=== PATIENT | male | born 1965 | race African-American/Black ===

== ENCOUNTER 2024-02-16 14:20 | Inpatient (IN) | payer SELFPAY ==
[~2024-02-16] VITALS: Ht 365.8 cm; Wt 85.3 kg
[2024-02-16 14:20] VITALS: RESP 22
[2024-02-16] MEDS ORDERED: ALBUTEROL (0.083%) 2.5MG/3ML NEB ONE (14:26)
[2024-02-16] MEDS ORDERED: IPRATROPIUM BROMIDE (0.02%) 0.5MG/2.5ML NEB ONE (14:26)
[2024-02-16] MEDS: MAGNESIUM 2 G PREMIX 50 ML IV ONE (14:48)
[2024-02-16] MEDS: SODIUM CHLORIDE 0.9% 500 ML IV ONE ×2 (14:48→19:26)
[2024-02-16 14:49] LABS: BASOPHILS % 0.7 % (0.0-2.0); EOSINOPHILS % 5.9 % (0.0-5.0); HEMATOCRIT. 45.9 % (42.0-52.0); HEMOGLOBIN. 15.6 g/dL (14.0-18.0); LYMPHOCYTES % 30.6 % (20.0-50.0); MEAN CORPUSCULAR HEMOGLOBIN 32.8 pg (28.0-32.0); MEAN CORPUSCULAR HGB CONC 34.1 g/dL (31.0-37.0); MEAN CORPUSCULAR VOLUME 96.1 fL (80.0-94.0); MEAN PLATELET VOLUME 8.4 fl (7.4-10.4); NEUTROPHILS % 49.8 % (40.0-76.0); PLATELET 226 x1000/uL (130-400); RED BLOOD CELL COUNT 4.77 mill/uL (4.7-6.1); RED CELL DISTRIBUTION WIDTH 13.3 % (11.6-14.6); WHITE BLOOD COUNT 8.1 x1000/uL (4.5-11.0)
[2024-02-16 14:54] LABS: CHLORIDE 107 mEq/L (98-107); SODIUM 139 mEq/L (136-145)
[2024-02-16 14:55] LABS: CARBON DIOXIDE 28 mEq/L (21-32)
[2024-02-16 15:00] LABS: CREATININE 1.4 mg/dL (0.6-1.3); GLUCOSE 111 mg/dL (70-105)
[2024-02-16 15:01] LABS: UREA NITROGEN BLOOD 9 mg/dL (9-23)
[2024-02-16 15:02] LABS: ALANINE AMINOTRANSFERASE 23 IU/L (10-49); ALBUMIN 4.1 g/dL (3.2-4.8); ASPARTATE AMINOTRANSFERASE 29 IU/L (<34)
[2024-02-16 15:03] LABS: BILIRUBIN TOTAL 0.3 mg/dL (0.1-1.0); PROTEIN TOTAL 7.3 g/dL (6.0-8.3)
[2024-02-16 15:31] LABS: TROPONIN I HIGH SENSITIVITY < 4 ng/L (3.0-53)
[2024-02-16 15:40] LABS: BG BASE EXCESS -1.3 mmol/L (-2.0-2.0); BG CARBOXYHEMOGLOBIN 0.4 % (0.5-1.5); BG DEOXYHEMOGLOBIN 0.1 % (0.0-5.0); BG FRACTION INSPIRED OXYGEN 100; BG HCO3 ACT 25.8 mmol/L (22.0-26.0); BG METHEMOGLOBIN 0.4 % (0.0-1.5); BG OXYGEN SATURATION 99.9 % (92.0-98.5); BG OXYHEMOGLOBIN 99.1 % (94.0-97.0); BG PCO2 52.1 mmHg (35.0-45.0); BG PH 7.312 (7.350-7.450); BG PO2 543.8 mmHg (75.0-100.0); BG SAMPLE SITE RIGHT RADIAL; BG TOTAL HEMOGLOBIN 15.4 g/dL (12.0-18.0); BG VENT MODE MASK - BIPAP
[2024-02-16] MEDS ORDERED: NA PHOS,M-B/NA PHOS,DI-BA ENEMA 118ML PR PRN (16:00)
[2024-02-16] MEDS ORDERED: NITROGLYCERIN 0.4MG TABLET SL SL PRN (16:00)
[2024-02-16] MEDS ORDERED: ONDANSETRON HCL 4MG/2ML INJ IV PRN (16:00)
[2024-02-16] MEDS ORDERED: ZOLPIDEM TARTRATE 5MG TABLET PO PRN (16:00)
[2024-02-16] MEDS ORDERED: IPRATROPIUM/ALBUTEROL 0.5-3(2.5)MG/3ML NEB NEB PRN (16:00)
[2024-02-16] MEDS ORDERED: CLONIDINE 0.1MG TABLET PO PRN (16:00)
[2024-02-16] MEDS ORDERED: MAGNESIUM/ALUMINUM HYDROXIDE/SIMETHICONE 30ML UDC PO PRN (16:00)
[2024-02-16] MEDS ORDERED: ACETAMINOPHEN 325MG TABLET PO PRN ×2 (16:00)
[2024-02-16] MEDS ORDERED: DOCUSATE SODIUM 100MG CAPSULE PO PRN (16:00)
[2024-02-16] MEDS ORDERED: KETOROLAC 15MG/ML VIAL IV PRN (16:00)
[2024-02-16 16:47] LABS: IRON 31 ug/dL (65-175)
[2024-02-16 16:50] LABS: TOTAL IRON BINDING CAPACITY 266 ug/dl (250-425)
[2024-02-16 16:58] LABS: TRIGLYCERIDE 78 mg/dL (0-150)
[2024-02-16 16:59] LABS: ETHANOL BLOOD < 10 mg/dL (<10); LDL CHOLESTEROL 92 mg/dL (5-100)
[2024-02-16 17:00] LABS: CHOLESTEROL 139 mg/dL (<200); HDL CHOLESTEROL 44 mg/dL (>55)
[2024-02-16 17:03] LABS: FOLIC ACID (FOLATE) SERUM 12.53 ng/mL (>5.38); VITAMIN B12 SERUM 706 pg/mL (211-911)
[2024-02-16 17:04] LABS: THYROID STIMULATING HORMONE 1.29 uIU/mL (0.55-4.78)
[2024-02-16] MEDS ORDERED: DILTIAZEM HCL 60MG TABLET PO SCH (18:00)
[2024-02-16 18:50] LABS: BG BASE EXCESS 0.3 mmol/L (-2.0-2.0); BG CARBOXYHEMOGLOBIN 0.5 % (0.5-1.5); BG DEOXYHEMOGLOBIN 5.1 % (0.0-5.0); BG FRACTION INSPIRED OXYGEN 28; BG HCO3 ACT 25.9 mmol/L (22.0-26.0); BG METHEMOGLOBIN 0.3 % (0.0-1.5); BG OXYGEN SATURATION 94.9 % (92.0-98.5); BG OXYHEMOGLOBIN 94.1 % (94.0-97.0); BG PCO2 45.3 mmHg (35.0-45.0); BG PH 7.375 (7.350-7.450); BG PO2 73.1 mmHg (75.0-100.0); BG SAMPLE SITE RIGHT RADIAL; BG VENT MODE NASAL CANNULA
[2024-02-16] MEDS: DILTIAZEM HCL 30MG TABLET PO SCH (19:25)
[2024-02-16] MEDS: ENOXAPARIN 40MG/0.4ML SYR SUBCUT SCH (19:26)
[2024-02-16] MEDS: AZITHROMYCIN 500MG/250ML 250 ML IV SCH (19:26)
[2024-02-16] MEDS: IPRATROPIUM/ALBUTEROL 0.5-3(2.5)MG/3ML NEB HHN ONE (20:02)
[2024-02-16 20:03] VITALS: PULSE 115; RESP 18; O2SAT 98
[2024-02-16] MEDS ORDERED: SODIUM CHLORIDE 0.9% 500 ML IV ONE (21:45)
[2024-02-16] MEDS: LABETALOL 5MG/ML SYR 20 MG/4 ML SYRINGE IV NR (22:04)
[2024-02-16 22:15] VITALS: PULSE 137; RESP 22; O2SAT 99
[2024-02-16] MEDS: IPRATROPIUM/ALBUTEROL 0.5-3(2.5)MG/3ML NEB HHN SCH (22:15)
[2024-02-16] MEDS: METHYLPREDNISOLONE SOD SUCC 125MG/2ML (ACT-O-VIAL) IV SCH (22:29)
[2024-02-16 22:40] VITALS: RESP 23
[2024-02-16 23:10] LABS: BG BASE EXCESS -6.4 mmol/L (-2.0-2.0); BG CARBOXYHEMOGLOBIN 0.2 % (0.5-1.5); BG DEOXYHEMOGLOBIN 0.1 % (0.0-5.0); BG FRACTION INSPIRED OXYGEN 100; BG HCO3 ACT 22.1 mmol/L (22.0-26.0); BG METHEMOGLOBIN 0.4 % (0.0-1.5); BG OXYGEN SATURATION 99.9 % (92.0-98.5); BG OXYHEMOGLOBIN 99.3 % (94.0-97.0); BG PH 7.215 (7.350-7.450); BG PO2 577.7 mmHg (75.0-100.0); BG SAMPLE SITE RIGHT RADIAL; BG TOTAL HEMOGLOBIN 15.4 g/dL (12.0-18.0); BG VENT MODE MASK - BIPAP
[2024-02-16] MEDS: GUAIFENESIN 600MG ER TABLET PO SCH (23:21)
[2024-02-16] MEDS: FAMOTIDINE 20MG TABLET PO SCH (23:22)
[2024-02-16 23:27] LABS: CREATINE KINASE 521 IU/L (46-171); CREATINE KINASE MB FRACTION 5.3 ng/mL (0.5-3.6)
[2024-02-16 23:36] LABS: TROPONIN I HIGH SENSITIVITY < 4 ng/L (3.0-53)
[2024-02-17] VITALS (13 sets, daily range): BP systolic 106–142; BP diastolic 59–99; PULSE 100–146; RESP 16–25; TEMP 97.4–98.6; O2SAT 98–99
[2024-02-17] MEDS: SODIUM CHLORIDE 0.9% 1,000 ML IV SCH (01:15)
[2024-02-17 06:44] LABS: HEMATOCRIT. 43.6 % (42.0-52.0); HEMOGLOBIN. 14.8 g/dL (14.0-18.0); MEAN CORPUSCULAR HEMOGLOBIN 32.8 pg (28.0-32.0); MEAN CORPUSCULAR HGB CONC 33.9 g/dL (31.0-37.0); MEAN CORPUSCULAR VOLUME 96.8 fL (80.0-94.0); MEAN PLATELET VOLUME 9.1 fl (7.4-10.4); PLATELET 199 x1000/uL (130-400); RED BLOOD CELL COUNT 4.51 mill/uL (4.7-6.1); RED CELL DISTRIBUTION WIDTH 13.1 % (11.6-14.6); WHITE BLOOD COUNT 6.2 x1000/uL (4.5-11.0)
[2024-02-17 06:53] LABS: CHLORIDE 106 mEq/L (98-107); POTASSIUM 5.1 mEq/L (3.5-5.1); SODIUM 139 mEq/L (136-145)
[2024-02-17 06:56] LABS: CALCIUM 9.1 mg/dL (8.7-10.4); CARBON DIOXIDE 26 mEq/L (21-32)
[2024-02-17 07:00] LABS: CREATINE KINASE MB FRACTION 4.7 ng/mL (0.5-3.6)
[2024-02-17 07:01] LABS: CREATININE 1.3 mg/dL (0.6-1.3); GLUCOSE 124 mg/dL (70-105); UREA NITROGEN BLOOD 8 mg/dL (9-23)
[2024-02-17 07:02] LABS: ALANINE AMINOTRANSFERASE 30 IU/L (10-49); DIFFERENTIAL COMMENT 1
[2024-02-17 07:03] LABS: ASPARTATE AMINOTRANSFERASE 32 IU/L (<34); PHOSPHORUS 2.8 mg/dL (2.5-4.9)
[2024-02-17 07:04] LABS: BILIRUBIN TOTAL 0.5 mg/dL (0.1-1.0); CREATINE KINASE 459 IU/L (46-171)
[2024-02-17 07:06] LABS: TROPONIN I HIGH SENSITIVITY < 4 ng/L (3.0-53)
[2024-02-17] MEDS: ASPIRIN 325MG EC TABLET PO SCH (09:33)
[2024-02-17 10:31] LABS: BG BASE EXCESS -1.1 mmol/L (-2.0-2.0); BG CARBOXYHEMOGLOBIN 0.3 % (0.5-1.5); BG DEOXYHEMOGLOBIN 0.9 % (0.0-5.0); BG FRACTION INSPIRED OXYGEN 50; BG HCO3 ACT 24.2 mmol/L (22.0-26.0); BG METHEMOGLOBIN 0.1 % (0.0-1.5); BG OXYGEN SATURATION 99.1 % (92.0-98.5); BG OXYHEMOGLOBIN 98.7 % (94.0-97.0); BG PCO2 42.9 mmHg (35.0-45.0); BG PO2 207.9 mmHg (75.0-100.0); BG SAMPLE SITE RIGHT RADIAL; BG TOTAL HEMOGLOBIN 15.2 g/dL (12.0-18.0); BG VENT MODE MASK - BIPAP
[2024-02-17 12:23] LABS: BG BASE EXCESS -0.6 mmol/L (-2.0-2.0); BG CARBOXYHEMOGLOBIN 0.3 % (0.5-1.5); BG DEOXYHEMOGLOBIN 6.3 % (0.0-5.0); BG FRACTION INSPIRED OXYGEN 21; BG HCO3 ACT 23.9 mmol/L (22.0-26.0); BG METHEMOGLOBIN 0.3 % (0.0-1.5); BG OXYGEN SATURATION 93.7 % (92.0-98.5); BG OXYHEMOGLOBIN 93.1 % (94.0-97.0); BG PCO2 38.9 mmHg (35.0-45.0); BG PH 7.406 (7.350-7.450); BG PO2 66.6 mmHg (75.0-100.0); BG SAMPLE SITE RIGHT RADIAL; BG TOTAL HEMOGLOBIN 15.3 g/dL (12.0-18.0); BG VENT MODE ROOM AIR
[2024-02-17] MEDS ORDERED: KETOROLAC 15MG/ML VIAL IV PRN (15:15)
[2024-02-17 16:07] LABS: PLATELET ESTIMATE NORMAL
[2024-02-17] MEDS: FAMOTIDINE 20MG/2ML VIAL IV SCH ×2 (17:10→21:37)
[2024-02-17] MEDS: MONTELUKAST SODIUM 10MG TABLET PO SCH (17:10)
[2024-02-18] VITALS (18 sets, daily range): BP systolic 101–146; BP diastolic 64–93; PULSE 90–148; RESP 15–28; TEMP 96.6–98.6; O2SAT 95–97
[2024-02-18 08:58] LABS: CHLORIDE 105 mEq/L (98-107); POTASSIUM 4.7 mEq/L (3.5-5.1); SODIUM 136 mEq/L (136-145)
[2024-02-18 08:59] LABS: CALCIUM 9.2 mg/dL (8.7-10.4); CARBON DIOXIDE 23 mEq/L (21-32)
[2024-02-18 09:04] LABS: CREATININE 1.3 mg/dL (0.6-1.3); GLUCOSE 113 mg/dL (70-105); UREA NITROGEN BLOOD 16 mg/dL (9-23)
[2024-02-18 09:06] LABS: PHOSPHORUS 3.5 mg/dL (2.5-4.9)
[2024-02-18] MEDS: DILTIAZEM HCL 90MG TABLET PO SCH (18:06)
[2024-02-18] MEDS: FAMOTIDINE 20MG TABLET PO SCH (20:51)
[2024-02-19] VITALS: BP 105/56; PULSE 128; RESP 17; TEMP 97.8
[2024-02-19] MEDS: GUAIFENESIN 200MG/10ML SUGAR FREE UDC PO PRN (00:22)
[2024-02-19 02:00] VITALS: BP 116/75; PULSE 101; RESP 15
[2024-02-19 04:00] VITALS: BP 108/49; PULSE 72; RESP 13; TEMP 99.1
[2024-02-19 04:04] VITALS: PULSE 80; RESP 19; O2SAT 96
[2024-02-19 08:00] VITALS: BP 97/77; PULSE 95; RESP 22; TEMP 99
[2024-02-19] MEDS: ASPIRIN 81MG EC TABLET PO SCH (08:13)
[2024-02-19] MEDS ORDERED: ALBU6.7H15 INH (08:53)
[2024-02-19] MEDS ORDERED: ASPI-867 MT (08:53)
[2024-02-19] MEDS ORDERED: MONT-46 PO (08:53)
[2024-02-19] MEDS ORDERED: DILT360C27 MT (08:53)
[2024-02-19] MEDS ORDERED: FAMO20TA8 PO (08:53)
[2024-02-19] MEDS ORDERED: SENN-257 MT (08:53)
[2024-02-19] MEDS ORDERED: P20 MT (08:53)
[2024-02-19] MEDS ORDERED: FERR325T6 MT (08:53)
[2024-02-19 08:58] VITALS: BP 99/62; PULSE 101; TEMP 98.6; O2SAT 99
== END 2024-02-19 17:53 | disposition home or self-care (01) | DRG 141 ==
LOC: ER 14:20 → EDBEDREQ 16:12 → EDBEDREQTM 16:12 → 5EST 21:40
PROVIDERS: ADMIT Internal Medicine; ATTEND Internal Medicine
PROC: 5A09357 Assistance with Respiratory Ventilation, Less than 24 Consecutive Hours, Continuous Positive Airway Pressure (ICD-10-PCS; principal; 2024-02-16)
DX: J45.901 Unspecified asthma with (acute) exacerbation (principal); J96.01 Acute respiratory failure with hypoxia; J96.02 Acute respiratory failure with hypercapnia; E87.29 Other acidosis; D63.8 Anemia in other chronic diseases classified elsewhere; I10 Essential (primary) hypertension; I48.91 Unspecified atrial fibrillation; R00.0 Tachycardia, unspecified; Z91.148 Patient's other noncompliance with medication regimen for other reason; Z88.0 Allergy status to penicillin; Z79.899 Other long term (current) drug therapy
CPT/HCPCS: 36415; 36600; 71045; 71046; 80048; 80053; 80061; 80320; 82375; 82550; 82553; 82607; 82746; 82805; 83036; 83540; 83550; 83735; 83880; 84100; 84145; 84439; 84443; 84484; 85025; 85379; 93005; 93306; 93970; 94640; 94644; 94660; 99291; J0456; J1650; J2930; J3475; J3490; J7030; J7040; G0480